=== PATIENT | male | born 1930 | race Caucasian/White ===

== ENCOUNTER 2017-11-10 08:35 | Inpatient (IN) | payer BC ==
[~2017-11-10] VITALS: Ht 182.9 cm; Wt 88.3 kg
[2017-11-10 09:38] LABS: Basophils # (auto) 0.1 uL; Basophils % (auto) 0.8 % (0.0-2.0); Eosinophils # (auto) 0.1 uL; Hematocrit 40.2 % (41.0-53.0); Hemoglobin 13.3 g/dL (13.5-17.5); Lymphocytes # (auto) 2.1 uL; Lymphocytes % (auto) 16.1 % (10.0-50.0); Mean Corpuscular Hemoglobin 30.9 pg (28.0-32.0); Mean Corpuscular Hgb Conc. 33.1 g/dL (32.0-36.0); Mean Corpuscular Volume 93.4 fL (80.0-100.0); Monocytes % (auto) 7.7 % (0.0-12.0); Neutrophils # (auto) 9.8 uL; Neutrophils % (auto) 74.4 % (37.0-80.0); Nucleated Red Blood Cells % 0.2 %; Platelet Count (auto) 199 10^3/uL (140-450); Red Blood Cells 4.31 10^6/uL (4.5-5.90); Red Cell Distribution Width 15.1 % (11.8-14.3); White Blood Cell 13.2 10^3/uL (4.4-10.8)
[2017-11-10 09:59] LABS: Albumin 3.2 g/dL (3.4-5.0); BUN/Creatinine Ratio 15.2; Bilirubin, Total 0.5 mg/dL (0.2-1.0); Calcium 9.8 mg/dL (8.5-10.1); Potassium 3.9 mmol/L (3.5-5.1); Total Protein 7.5 g/dL (6.4-8.2)
[2017-11-10 13:48] LABS: Urine Bacteria NONE SEEN /hpf (None Seen); Urine Blood Negative /uL (Negative); Urine Specific Gravity 1.012 (1.001-1.035); Urine WBC <1 /hpf (0 - 3)
[2017-11-10] MEDS ORDERED: SODIUM CHLORIDE 0.9% 500 ML IVB ONE (13:53)
[2017-11-10 14:46] LABS: Magnesium 2.2 mg/dL (1.6-2.6)
[2017-11-10 14:47] LABS: INR 1.15 (0.9-1.15); Partial Thromboplastin Time 31.3 sec (22.64-33.71); Prothrombin Time 12.5 sec (9.37-12.3)
[2017-11-10] MEDS ORDERED: ONDANSETRON HCL 4 MG/2 ML VIAL IV ONE (15:15)
[2017-11-10] MEDS ORDERED: MORPHINE SULFATE 4 MG/ML SYR/VIAL IV ONE (15:15)
[2017-11-10] MEDS ORDERED: FURO40TA4 PO (15:49)
[2017-11-10] MEDS ORDERED: HYDR-4683 PO (15:49)
[2017-11-10] MEDS ORDERED: IPRA0.03 (15:49)
[2017-11-10] MEDS ORDERED: ALPR0.5T7 PO (15:49)
[2017-11-10] MEDS ORDERED: ALBU1AER4 IN (15:49)
[2017-11-10] MEDS ORDERED: CITA10TA59 PO (15:49)
[2017-11-10] MEDS ORDERED: LORA-622 PO (15:49)
[2017-11-10] MEDS ORDERED: FLUT250M2 INH (15:49)
[2017-11-10] MEDS ORDERED: AML5T PO (15:49)
[2017-11-10] MEDS ORDERED: BACL20TA PO (15:49)
[2017-11-10] MEDS: SODIUM CHLORIDE 0.9% 1,000 ML IV SCH (15:53)
[2017-11-10] MEDS ORDERED: LORazepam 0.5 MG TAB PO PRN (16:00)
[2017-11-10] MEDS ORDERED: NITROGLYCERIN 0.4 MG SL TAB SL PRN (16:00)
[2017-11-10] MEDS ORDERED: LACTULOSE 20Gm/30ML SOLN PO PRN (16:00)
[2017-11-10] MEDS ORDERED: TEMAZEPAM 15 MG CAP PO PRN (16:00)
[2017-11-10] MEDS ORDERED: METOPROLOL TARTRATE 25 MG TAB PO ONE (16:00)
[2017-11-10] MEDS ORDERED: MORPHINE SULFATE 4 MG/ML SYR/VIAL IV PRN (16:00)
[2017-11-10] MEDS ORDERED: ACETAMINOPHEN 500 MG TAB PO PRN (16:00)
[2017-11-10] MEDS ORDERED: HYDROcodone-ACET 5/325MG TAB PO PRN (16:00)
[2017-11-10] MEDS ORDERED: ALBUTEROL SULF 2.5 MG/0.5ML(0.5%) NEB SOLN NEB PRN (16:30)
[2017-11-10 17:30] VITALS: BP 132/73
[2017-11-10 18:14] VITALS: BP 132/73
[2017-11-10] MEDS ORDERED: PNEUMOCOCCAL VACC POLYS 25 MCG/0.5 ML VIAL IM SCH (19:00)
[2017-11-10 21:25] VITALS: BP 132/73
[2017-11-10] MEDS: METOPROLOL TARTRATE 25 MG TAB PO SCH (21:42)
[2017-11-10] MEDS ORDERED: DONEPEZIL HYDROCHLORIDE 5 MG TAB PO SCH (22:00)
[2017-11-10] MEDS ORDERED: ATORVASTATIN 20 MG TAB PO SCH (22:00)
[2017-11-10] MEDS ORDERED: TERAZOSIN HCL 1 MG CAP PO SCH (22:00)
[2017-11-10 22:02] VITALS: BP 115/54
[2017-11-11] MEDS: SODIUM CHLORIDE 0.9% 1,000 ML IV SCH (04:23)
[2017-11-11 05:00] VITALS: BP 141/82
[2017-11-11] MEDS ORDERED: LEVOTHYROXINE SODIUM 25 MCG TAB PO SCH (07:00)
[2017-11-11 07:33] LABS: Basophils # (auto) 0 uL; Basophils % (auto) 0.4 % (0.0-2.0); Eosinophils # (auto) 0.1 uL; Eosinophils % (auto) 0.9 % (0.0-7.0); Hematocrit 36.5 % (41.0-53.0); Hemoglobin 12.3 g/dL (13.5-17.5); Lymphocytes # (auto) 1.4 uL; Lymphocytes % (auto) 11.1 % (10.0-50.0); Mean Corpuscular Hemoglobin 30.8 pg (28.0-32.0); Mean Corpuscular Hgb Conc. 33.7 g/dL (32.0-36.0); Mean Corpuscular Volume 91.6 fL (80.0-100.0); Monocytes # (auto) 1.1 uL; Monocytes % (auto) 8.4 % (0.0-12.0); Neutrophils # (auto) 10.1 uL; Neutrophils % (auto) 79.2 % (37.0-80.0); Platelet Count (auto) 148 10^3/uL (140-450); Red Blood Cells 3.98 10^6/uL (4.5-5.90); White Blood Cell 12.7 10^3/uL (4.4-10.8)
[2017-11-11 08:47] VITALS: BP 132/88
[2017-11-11] MEDS ORDERED: RIV20T PO (08:54)
[2017-11-11] MEDS ORDERED: LEVO25TA6 PO (08:54)
[2017-11-11] MEDS ORDERED: DONE10TA40 PO (08:54)
[2017-11-11] MEDS ORDERED: TERA5CAP42 PO (08:54)
[2017-11-11] MEDS ORDERED: LISI-275 PO (08:54)
[2017-11-11] MEDS ORDERED: IBUP600T27 PO (08:54)
[2017-11-11] MEDS ORDERED: SIMV-8 PO (08:54)
[2017-11-11] MEDS ORDERED: ACET650T4 PO (08:54)
[2017-11-11] MEDS ORDERED: FINA5TAB4 PO (08:54)
[2017-11-11] MEDS ORDERED: SERT-274 PO (08:54)
[2017-11-11] MEDS ORDERED: DIGO0.1262 PO (08:54)
[2017-11-11] MEDS: METOPROLOL TARTRATE 25 MG TAB PO SCH (09:22)
[2017-11-11] MEDS ORDERED: LISINOPRIL 5 MG TAB PO SCH (10:00)
[2017-11-11] MEDS ORDERED: SERTRALINE HCL 50 MG TAB PO SCH (10:00)
[2017-11-11] MEDS ORDERED: NITROGLYCERIN 0.2MG/HR TOPICAL PATCH TD SCH (10:00)
[2017-11-11] MEDS ORDERED: DIGOXIN 0.125 MG TAB PO SCH (10:00)
[2017-11-11 10:45] VITALS: BP 132/88
[2017-11-11] MEDS: MORPHINE SULFATE 4 MG/ML SYR/VIAL IV PRN ×2 (11:31→19:14)
[2017-11-11] MEDS: PROMETHAZINE HCL 25 MG/ML 1ML IV PRN ×2 (11:31→19:14)
[2017-11-11 16:44] VITALS: BP 125/70
== END 2017-11-11 19:20 | disposition short-term general hospital (02) | DRG 308 ==
LOC: EDBD 08:35 → ER 08:35 → TELE 08:36 → TELE-EAST 17:29 → TELE-CENTR 22:18
PROVIDERS: ADMIT Internal Medicine; ATTEND Family Medicine
DX: I48.91 Unspecified atrial fibrillation (principal); S72.011A Unspecified intracapsular fracture of right femur, initial encounter for closed fracture; F03.90 Unspecified dementia, unspecified severity, without behavioral disturbance, psychotic disturbance, mood disturbance, and anxiety; N40.0 Benign prostatic hyperplasia without lower urinary tract symptoms; E03.9 Hypothyroidism, unspecified; E78.5 Hyperlipidemia, unspecified; I10 Essential (primary) hypertension; R29.6 Repeated falls; W18.39XA Other fall on same level, initial encounter; F32.9 Major depressive disorder, single episode, unspecified; K59.00 Constipation, unspecified; G47.00 Insomnia, unspecified; Y93.89 Activity, other specified; Y99.8 Other external cause status; Z79.899 Other long term (current) drug therapy; Z85.828 Personal history of other malignant neoplasm of skin; Z82.49 Family history of ischemic heart disease and other diseases of the circulatory system; Y92.121 Bathroom in nursing home as the place of occurrence of the external cause
CPT/HCPCS: 36415; 70450; 71045; 72192; 73502; 80053; 80162; 81001; 83605; 83735; 84484; 85025; 85610; 85730; 87040; 87081; 87086; 93005; 93306; 94761; 96361; 96374; 96375; J2405